=== PATIENT | female | born 1990 | race Caucasian/White ===

== ENCOUNTER → 2017-02-04 | Outpatient (CLI) | payer OTHER ==
[~2017-02-04] MED LIST: ALL180 PO; BCPILLS PO; CEPH500C PO; LAMO100T16 PO; LEVO125T5 PO; MELO7.5T5 PO; SIMV-150 PO
--- NOTE | 2017-02-05 06:48 | PAP/PSG TECHNICIAN REPORT ---
[facility] Shipping Agent Polysomnogram Report Study name: None Report date: 02/05/2017 Study date: 02/04/2017 Referring Physician: Meaghan JIANG M.D. Name: GUERO LINO Interpreting Physician: Alvarado Jiang M.D. Date of : 1990 Shipping Agent: Sina Christensen RPSGT. Sex: Female Age: 26 StudyType: PSG Weight: 265 lbs Height: 26 years, Height 5' 6" BMI: 42.77 Medications: LEVOXYL 125 MCG, LAMICTAL 100 MG, KAMERON 180 MG, SILVADENE, SPRINTEC, MELOXICAM 7.5 MG, CLINDAMYCIN PHOSPHATE, ZOCOR 10 MG, VENTOLIN HFA 108 90 BASE, FLUTICASONE PROPIONATE, ACYCLOVIR 200 MG, CHANTIX Patient History PATIENT HAS HISTORY OF SNORING AND FEELING TIRED ALL DAY. HER BOYFRIEND SAYS THAT SHE STOPS BREATHING AT NIGHT. SHE USUALLY ONLY SLEEPS 5-6 HOURS A NIGHT. SHE IS HERE TODAY FOR AN EVALUATION OF TWYLA. ESS = 12 RM 2 Parameters Monitored NPSG: E1-M2, E2-M1, Fp1-M2, Fp2-M1, F3-M2, F4-M2, F4-M1, C3-M2, C4-M2, C4-M1, O1-M2, O2-M2, O2-M1, T3-M2, T4-M1, P3-M2, P4-M1, CHIN1, CHIN2, HR, EKG, Legs, PFLOW, SNOR, FLOW, CFLOW, Tidal Volume, THOR, ABDO, SpO2, PLTH, CPRESS, ETCO2 Wave, ETCO2, pH Sleep Architecture Sleep Stages Time at Lights Off 10:47:54 PM STAGES Time (min.) TST (%) Time at Lights On 5:58:24 AM Wake 48.5 -- Total Recording Time (TRT) 431.50 min. N1 21.0 5 Total Sleep Period (TSP) 413.5 min. N2 226.5 59 Total Sleep Time (TST) 382.0min. N3 85.0 22 Awake Time 48.5 min. REM 49.5 13 Wake after Sleep Onset 31.5 min. Sleep Efficiency (SE) 89 % Sleep Onset Latency (LARISA) 17.0 min. Number of Stage 1 Shifts None Awakenings 15 Stage Changes 75 Number of REM periods 3 REM 49.5 13 REM Latency 255.5 min. NREM 332.5 87 Body Position Analysis Supine Right Left Side Prone Vertical Total Sleep Time (min.) 10.8 232.5 149.5 382.00 0.0 0.0 Total Sleep Time (%) 0% 61% 39% 100 0% N/A% Total Sleep Time REM (min.) 0.0 49.5 0.0 None 0.0 0.0 Total Sleep Time NREM (min.) 0.0 183.0 149.5 None 0.0 0.0 Intermittent Wake (min.) 10.8 16.2 21.5 None 0.0 0.0 Total Sleep Period (%) 0% None None None None None Arousals Myoclonus (PLM) * Events Count Index Events Count Index Spontaneous 34 5 Events Awake (PLMW) 50 61.9 Respiratory 0 0.0 Events Asleep w/ Arousal (PLMA) 4 0.6 PLM 4 1 Events Asleep w/o Arousal (PLMS) 96 15.1 Snoring 8 1 Total Asleep 100 15.7 Total 46 7 Total 150 21 Respiratory Analysis * CA OA MA CH H RERA Total Count 0 0 0 0 6 0 6 Index 0.0 0.0 0.0 0 0.9 0 0.9 Mean Duration 0.0 0.0 0.0 0.00 22.0 0.0 22.0 Longest Duration 0.0 0.0 0.0 0.00 0.0 0.0 30.4 Respiratory Event Summary Total Supine ~Supine Right Left Prone REM NREM Apneas Count 0 N/A 0 0 0 N/A 0 0 Index 0.0 N/A 0 0.0 0.0 N/A 0 0 Hypopneas (4% Desat) Count 6 N/A 6 6 0 N/A 2 4 Index 0.9 N/A 1 1.5 0.0 N/A 2.4 0.7 Apneas & All Hypopneas Count 6 N/A 6 6 0 N/A 2 4 Index 0.9 N/A 1 2 0 N/A 2.4 0.7 Respiratory Events (Director Economic+All Hyp+RERA) Count 6 N/A 6 6 0 N/A 2 4 Index 0.9 N/A 1 1.5 0.0 N/A 2.4 0.7 Respiratory Related Arousal Count 0 N/A 0 0 0 N/A 0 0 Index 0.0 N/A 0 0 0 N/A 0 0 Snoring Analysis Supine Right Left Prone REM NREM Total Snore duration 21.5 min Snores count N/A 584 707 N/A 63 1,228 1,291 Snore mean duration 1.0 Sec Snores index N/A 151 284 N/A 76.4 221.6 202.8 TST with snoring (%) 5.6% Desaturation Event Summary: Minimum %SpO2 Event Count Mean/Min/Max Duration(sec.) Desaturation Index % Time In Bed > 90 14 30.8 / 9.5 / 68.2 2.3 86.3 86 - 90 1 7.8 / 7.8 / 7.8 1.1 13.4 81 - 85 0 N/A 0.0 0.3 76 - 80 0 N/A 0.0 0.0 71 - 75 0 N/A 0.0 0.0 66 - 70 0 N/A 0.0 0.0 61 - 65 0 N/A 0.0 0.0 56 - 60 0 N/A 0.0 0.0 51 - 55 0 N/A 0.0 0.0 < 50 0 N/A 0.0 0.0 Total REM NREM Awake <50% 0.0 min. 0.0 min. 0.0 min. 0.0 min. 51 - 60% 0.0 min. 0.0 min. 0.0 min. 0.0 min. 61 - 70% 0.0 min. 0.0 min. 0.0 min. 0.0 min. 71 - 80% 0.0 min. 0.0 min. 0.0 min. 0.0 min. 81 - 90% 58.0 min. 0.0 min. 56.1 min. 1.8 min. 91 - 100% 364.7 min. 49.4 min. 274.2 min. 41.1 min. Average 93 94 93 94 Minimum SpO2 84 91 85 84 Desaturation Event Index 2.1 2.4 0.7 12.4 # Desat. Events below 89% 2 N/A N/A 2 Time(%) with Saturation below 89% 5.4 0.0 5.3 0.1 Time(min.) with Saturation below 89% 22.9 0.0 22.6 0.3 Time (mins) REM (mins) NREM (mins) % of TST SpO2 Below 90% 3 N/A N3 11.1 SpO2 Below 88% 0 0 0 2 Heart Rate Analysis Min (bpm) Max (bpm) Average (bpm) Awake 71 96 82 NREM 68 127 79 REM 67 92 78 Overall 67 127 79 Supplemental O2 Values Minimum O2 level: None Value Start Time End Time Shipping Agent Comments Ms. Lino slept in the right, left and supine positions. No cardiac arrhythmia noted. Leg movements noted. No bruxism noted. Snoring was noted and scored as a 3 on a scale of 1 through 5. (0=no snoring, 5=snoring loud enough to be heard through a closed door or down the [address] way) Ms. Lino awoke to use the restroom 1 time during the night. Ms. Lino stated I slept as well as I do when I am in my own bed. The final report will be interpreted and signed by a sleep physician. The completed physician report will then be placed in the patient medical record. Therapy (cm H2O) 0 TIB (min.) 430.5 TST (min.) 382.0 Sleep Onset (min.) 17.0 REM Onset From Sleep (min.) 255.5 Sleep Efficiency % 89 Wakefulness (%) 11 Wakefulness (min.) 48.5 NREM 1 (%) 5 NREM 1 (min.) 21.0 NREM 2 (%) 59 NREM 2 (min.) 226.5 NREM 3 (%) 22 NREM 3 (min.) 85.0 REM (%) 13 REM (min.) 49.5 # Arousals 46 Arousal Index 7 # Snore 1,291 Snore Index 202.8 AHI 0.9 AHI Supine N/A AHI Non-Supine 1 NREM AHI 0.7 REM AHI 2.4 RDI 0.9 # Obstructive Apnea 0 # Central Apnea 0 # Mixed Apnea 0 # Hypopneas 6 RERAs 0 Total Respiratory Events 7 Time Below SpO2 89% (min.) 22.6 Mean NREM SpO2 (%) 93 Mean REM SpO2 (%) 94 Mean Sleep SpO2 (%) 93 Min NREM SpO2 (%) 85 Min REM SpO2 (%) 91 Position Supine (min.) 10.8 Position Non-supine (min.) 382.0 LM Index Sleep 15.7 LM Index NREM 17.5 LM Index REM 3.6 Mean Heart Rate (bpm) 79 Min Heart Rate (bpm) 67
--- NOTE | 2017-02-15 09:43 | POLYSOMNOGRAPH REPORT ---
REFERRING PERSON: Dr. Rashida Jiang. MEDICAL SCIENTIFIC LIAISON: Sina Christensen. Ms. Lino is a 26-year-old female, who is sent to the sleep lab for snoring, and excessive daytime sleepiness. Her boyfriend tells her that she stops breathing at night. She only sleeps 5-6 hours of sleep per night. Her Mayer sleepiness scale score on the evening of this study is 12. BMI is 42.77. Ms. Lino's total sleep period time was 413.5 minutes. Total sleep time was 382 minutes. Sleep efficiency was 89%. Latency to sleep onset was 17 minutes. Wake after sleep onset was 31.5 minutes. Total non-REM sleep time was 332.5 minutes. She spent 5% of that time in N1 sleep, 59% in N2 sleep, and 22% in N3 sleep. REM latency was prolonged at 255.5 minutes. Total REM sleep time was 49.5 minutes or 13% of total sleep time. There were 46 cortical arousals from sleep. 34 of those arousals were spontaneous, 4 were due to periodic limb movements, and 8 were due to snoring. There were 100 periodic limb movements noted on this test. Limb movement index is 15.7, limb movement with arousal index was 0.6. On this sleep study, there were no central, obstructive or mixed apneas. There were 6 hypopneas. Apnea-hypopnea index was normal at 0.9. 1291 snoring events were recorded. Total sleep time with snoring was 5.6%. Mean saturation was 93% with desaturations to 84%. Saturations were less than 89% for 22.9 minutes of recorded time. There was no cardiac ectopy noted on this study. Heart rates ranged from a low of 57 beats per minute to a high of 127 beats per minute during sleep. IMPRESSION AND PLAN: A 26-year-old female with morbid obesity without evidence of sleep apnea, but significant nocturnal hypoxemia on the sleep study. 1. The patient may benefit from oxygen therapy at bedtime. An NPO could be performed on room air to confirm findings of this study and then started on oxygen at home. Overnight oximetry on oxygen should be performed to ensure hypoxemia resolves with treatment. 2. This patient's hypoxemia is likely related to her weight. Weight loss should be strongly encouraged. MTDD
== END | disposition home or self-care (01) ==
LOC: C.NEUR 21:00
PROVIDERS: ATTEND Family Medicine
DX: G47.10 Hypersomnia, unspecified (principal); R06.83 Snoring